=== PATIENT | male | born 1975 | race African-American/Black ===

== ENCOUNTER 2017-08-12 16:18 | Emergency (ER) | payer SELFPAY ==
[2017-08-12 16:25] VITALS: BP 121/57
--- NOTE | 2017-08-12 17:19 | ER Document Report ---
ED Medical Screen (RME) - General Chief Complaint: Abdominal Pain Stated Complaint: ABDONINAL PAIN Time Seen by Provider: 08/12/17 17:17 Mode of Arrival: Wheelchair Information source: Patient - HPI Patient complains to provider of: abd pain Onset: Other - pt with c/o epigastric pain intermittently for the past 1-2 days - Related Data Allergies/Adverse Reactions: No Known Allergies Allergy (Verified 08/12/17 16:24) Past Medical History - Social History Frequency of alcohol use: None Drug Abuse: None Renal/ Medical History: Denies: Hx Peritoneal Dialysis - Immunizations Hx Diphtheria, Pertussis, Tetanus Vaccination: Yes Physical Exam - Vital signs Vitals: Temp Pulse Resp BP Pulse Ox 98.7 F 65 14 121/57 L 96 08/12/17 16:24 08/12/17 16:24 08/12/17 16:24 08/12/17 16:24 08/12/17 16:24 Course - Vital Signs Vital signs: Temp Pulse Resp BP Pulse Ox 98.7 F 65 14 121/57 L 96 08/12/17 16:24 08/12/17 16:24 08/12/17 16:24 08/12/17 16:24 08/12/17 16:24
[2017-08-12 17:53] LABS: APPEARANCE,URINE CLEAR; BILIRUBIN,URINE NEGATIVE (NEGATIVE); GLUCOSE, URINE NEGATIVE (NEGATIVE); KETONES,URINE NEGATIVE (NEGATIVE); LEUKOCYTE ESTERASE,URINE SMALL (NEGATIVE); NITRITE,URINE NEGATIVE (NEGATIVE); PROTEIN,URINE NEGATIVE (NEGATIVE); URINE SPECIFIC GRAVITY 1.017; UROBILINOGEN,URINE NEGATIVE mg/dL (<2.0)
[2017-08-12 18:11] LABS: ABSOLUTE BASOPHILS # (AUTO) 0.1 10^3/uL (0.0-0.2); ABSOLUTE EOSINOPHILS # (AUTO) 0.4 10^3/uL (0.0-0.6); ABSOLUTE LYMPHOCYTES (AUTO) 1.5 10^3/uL (0.5-4.7); ABSOLUTE MONOCYTES (AUTO) 0.6 10^3/uL (0.1-1.4); ABSOLUTE NEUT (AUTO) 4.5 10^3/uL (1.7-8.2); BASOPHILS % (AUTO) 1.2 % (0-2); HEMATOCRIT 37.9 % (37.9-51.0); HEMOGLOBIN 13.1 g/dL (13.5-17.0); HGB HCT DIFFERENCE 1.4; MEAN CORPUSCULAR HEMOGLOBIN 30.9 pg (27.0-33.4); MEAN CORPUSCULAR HGB CONC 34.7 g/dL (32.0-36.0); MEAN CORPUSCULAR VOLUME 89 fl (80-97); MONOCYTES % (AUTO) 8.3 % (3-13); RED BLOOD COUNT 4.26 10^6/uL (4.35-5.55); RED CELL DISTRIBUTION WIDTH 14.8 % (11.5-14.0); SEGMENTED NEUTROPHILS % (AUTO) 63.5 % (42-78); WHITE BLOOD COUNT 7.1 10^3/uL (4.0-10.5)
--- NOTE | 2017-08-12 18:26 | RADIOLOGY REPORT (SQ) ---
EXAM DESCRIPTION: CHEST PA/LAT COMPLETED DATE/TIME: 08/12/2017 6:18 pm REASON FOR STUDY: DIFFICULTY BREATHING COMPARISON: None. EXAM PARAMETERS: NUMBER OF VIEWS: two views TECHNIQUE: Digital Frontal and Lateral radiographic views of the chest acquired. RADIATION DOSE: NA LIMITATIONS: none FINDINGS: LUNGS AND PLEURA: No opacities, masses or pneumothorax. No pleural effusion. MEDIASTINUM AND HILAR STRUCTURES: No masses or contour abnormalities. HEART AND VASCULAR STRUCTURES: Heart normal size. No evidence for failure. BONES: No acute findings. HARDWARE: None in the chest. OTHER: No other significant finding. IMPRESSION: NO SIGNIFICANT RADIOGRAPHIC FINDING IN THE CHEST. TECHNICAL DOCUMENTATION: JOB ID: [id number] [email or web address]- All Rights Reserved
--- NOTE | 2017-08-12 18:29 | RADIOLOGY REPORT (SQ) ---
EXAM DESCRIPTION: SOFT TISSUE NECK COMPLETED DATE/TIME: 08/12/2017 6:18 pm REASON FOR STUDY: DIFFICULTY SWALLOWING COMPARISON: None. NUMBER OF VIEWS: Two views. TECHNIQUE: AP and lateral radiographic image of the soft tissues of the neck. LIMITATIONS: None. FINDINGS: EPIGLOTTIS: Normal. Contour normal. Aryepiglottic folds normal. PREVERTEBRAL SOFT TISSUES: Normal. No soft tissue swelling. SUBGLOTTIC AREA: Normal. No narrowing. RETROPHARYNGEAL SPACE: Normal. No soft tissue masses. BONES: No significant findings. LUNG APICES: Normal. OTHER: No radiopaque foreign body. No other significant finding. IMPRESSION: NEGATIVE STUDY OF THE SOFT TISSUES OF THE NECK. TECHNICAL DOCUMENTATION: JOB ID: [id number] [email or web address]- All Rights Reserved
[2017-08-12 19:16] LABS: ALANINE AMINOTRANSFERASE 79 U/L (21-72); ALBUMIN 4.5 g/dL (3.5-5.0); ALKALINE PHOSPHATASE 96 U/L (38-126); ANION GAP 12 (5-19); ASPARTATE AMINO TRANSFERASE 35 U/L (17-59); BILIRUBIN,DIRECT 0.3 mg/dL (0.0-0.4); BILIRUBIN,TOTAL 0.5 mg/dL (0.2-1.3); BLOOD UREA NITROGEN 11 mg/dL (7-20); CALCIUM 9.4 mg/dL (8.4-10.2); CARBON DIOXIDE 26 mmol/L (22-30); CHLORIDE 102 mmol/L (98-107); CREATINE KINASE 372 U/L (55-170); CREATININE RESULT 0.98 mg/dL (0.52-1.25); GLUCOSE 91 mg/dL (75-110); LIPASE 19.7 U/L (23-300); POTASSIUM 4.4 mmol/L (3.6-5.0); SODIUM 140.2 mmol/L (137-145); TOTAL PROTEIN 7.3 g/dL (6.3-8.2)
[2017-08-12 19:27] LABS: CREATINE KINASE MB 2.25 ng/mL (<4.55)
[2017-08-12 19:28] LABS: TROPONIN I < 0.012 ng/mL
== END 2017-08-12 20:30 | disposition left against medical advice (07) ==
LOC: ER 16:18
DX: Z53.9 Procedure and treatment not carried out, unspecified reason (principal); R10.9 Unspecified abdominal pain; R10.13 Epigastric pain
CPT/HCPCS: 36415; 70360; 71020; 80053; 81001; 82550; 82553; 83690; 84484; 85025; 99281